=== PATIENT | female | born 1995 | race Caucasian/White ===

== ENCOUNTER → 2021-02-03 | Outpatient (CLI) | payer BC, OTHER ==
[~2021-02-03] MED LIST: NORE1TAB26 PO
== END | disposition home or self-care (01) ==
LOC: CVU 07:39
PROVIDERS: ATTEND Internal Medicine Hematology & Oncology
DX: C81.11 Nodular sclerosis Hodgkin lymphoma, lymph nodes of head, face, and neck (principal); I36.1 Nonrheumatic tricuspid (valve) insufficiency
CPT/HCPCS: 93306; 93356